=== PATIENT | male | born 1990 | race Two or more races ===

== ENCOUNTER 2024-12-05 08:14 | Inpatient (IN) | payer OTHER ==
[~2024-12-05] VITALS: Ht 167.6 cm; Wt 240.0 kg
[2024-12-05] MEDS ORDERED: ENTYVIO300 MG IV (08:24)
[2024-12-05] MEDS ORDERED: MORPHINE SULFATE 2 MG/ML SYRINGE IV STA (09:06)
[2024-12-05] MEDS ORDERED: FAMOtidine 10 MG/ML (4ML VIAL) IV STA (09:06)
[2024-12-05] MEDS ORDERED: 0.9 % SODIUM CHLORIDE 1,000 ML IV STA (09:07)
[2024-12-05] MEDS ORDERED: FAMOTIDINE/PF 20 MG/2 ML VIAL ONE ×2 (09:13→18:52)
[2024-12-05 10:07] LABS: BASO % 0.5 % (0.1-1.2); EOS # 0.25 (0.04-0.54); EOS % 2.1 % (0.7-7.0); HEMATOCRIT 42.9 % (40.1-51.0); HEMOGLOBIN 14.6 g/dL (13.7-17.5); LYMPH % 14.4 % (19.3-53.1); MEAN CORPUSCULAR HEMOGLOBIN 31.1 pg (25.6-32.2); MONO # 0.76 (0.24-0.82); MONO % 6.5 % (4.7-12.5); NEUT # 8.96 (1.56-6.13); NEUT % 76.2 % (34.0-71.1); PLATELET COUNT 252 K/uL (163-369); RED BLOOD COUNT 4.69 M/uL (4.63-6.08); RED CELL DISTRIBUTION WIDTH 12.2 % (11.6-14.4)
[2024-12-05 10:42] LABS: ALBUMIN 3.9 gm/dL (3.4-5.0); BILIRUBIN TOTAL 0.68 mg/dL (0.3-1.2); CALCIUM 9.5 mg/dL (8.5-10.1); CREATININE SERUM 0.94 mg/dL (0.70-1.30); POTASSIUM 4.27 mEq/L (3.5-5.1); TOTAL PROTEIN 7.9 gm/dL (6.4-8.2)
[2024-12-05] MEDS ORDERED: BARIUM SULFATE 450 ML ORAL.SUSP PO ONE (11:19)
[2024-12-05] MEDS ORDERED: CIPROFLOXACIN IN 5 % DEXTROSE 200 ML IV SCH (15:11)
[2024-12-05] MEDS ORDERED: MORPHINE SULFATE 2 MG/ML SYRINGE IV PRN (15:15)
[2024-12-05] MEDS ORDERED: CIPROFLOXACIN IN 5 % DEXTROSE 400 MG/200 ML PIGGYBAG IV ONE (15:47)
[2024-12-05] MEDS ORDERED: METRONIDAZOLE/SODIUM CHLORIDE 500 MG/100 ML PIGGYBACK IV ONE (15:47)
[2024-12-05] MEDS ORDERED: METRONIDAZOLE/SODIUM CHLORIDE 500 MG/100 ML PIGGYBACK IV SCH (17:00)
[2024-12-05] MEDS ORDERED: FAMOTIDINE/PF 20 MG in 0.9 % SODIUM CHLORIDE 8 ML IV PUSH SCH (18:14)
[2024-12-05] MEDS ORDERED: 0.9 % SODIUM CHLORIDE 1,000 ML IV SCH (18:15)
[2024-12-05] MEDS ORDERED: ACETAMINOPHEN 500 MG GEL..CAP PO PRN (18:15)
[2024-12-05 19:26] VITALS: BP 128/80
[2024-12-05 19:44] LABS: INR 1.03; PARTIAL THROMBOPLASTIN TIME 30.2 SECONDS (22.0-34.0); PROTHROMBIN TIME 11.2 SECONDS (9.0-11.5)
[2024-12-05 19:56] LABS: URINE APPEARANCE Clear; URINE BILIRRUBIN Negative (NEGATIVE); URINE BLOOD Negative; URINE COLOR Yellow; URINE GLUCOSE Negative (NEGATIVE); URINE LEUKOCYTE Negative; URINE NITRATE Negative; URINE PROTEIN Negative (NEGATIVE); URINE UROBILINOGEN 0.2 E.U./dl
[2024-12-05 19:59] LABS: URINE BACTERIA 24.4 uL (0.0-1933); URINE RBC 3.5 uL (0.0-20.8)
[2024-12-05 20:09] LABS: URINE EPITHELIAL CELLS 0.9 uL (0.0-38.8); URINE KETONE 40 (NEGATIVE); URINE WBC 1.3 uL (0.0-23.2)
[2024-12-06 02:00] VITALS: BP 102/53; O2SAT 98
[2024-12-06] MEDS ORDERED: CIPROFLOXACIN IN 5 % DEXTROSE 200 ML IV SCH (05:00)
[2024-12-06 08:00] VITALS: BP 102/61; O2SAT 95
[2024-12-06] MEDS ORDERED: HYDROGEN PEROXIDE 118 ML SOLUTION TOP ONE (15:15)
[2024-12-06] MEDS ORDERED: ISOPROPYL ALCOHOL 30 ML OUNCE TOP ONE (15:30)
[2024-12-06] MEDS ORDERED: POVIDONE-IODINE 0.75 OZ PACKET TOP ONE (15:30)
[2024-12-06] MEDS ORDERED: 0.9 % SODIUM CHLORIDE 1,000 ML IV SCH (17:00)
[2024-12-07 01:06] VITALS: BP 107/66; O2SAT 98
[2024-12-07 07:56] LABS: CALCIUM 8.9 mg/dL (8.5-10.1); CREATININE SERUM 0.76 mg/dL (0.70-1.30); GFR 118.86; POTASSIUM 4.07 mEq/L (3.5-5.1)
[2024-12-07 08:02] LABS: BASO % 0.3 % (0.1-1.2); EOS # 0.08 (0.04-0.54); EOS % 0.6 % (0.7-7.0); HEMATOCRIT 39.6 % (40.1-51.0); HEMOGLOBIN 13.5 g/dL (13.7-17.5); LYMPH # 1.41 (1.18-3.74); MEAN CORPUSCULAR HEMOGLOBIN 31.1 pg (25.6-32.2); MONO # 0.88 (0.24-0.82); MONO % 6.8 % (4.7-12.5); NEUT # 10.37 (1.56-6.13); NEUT % 80.7 % (34.0-71.1); PLATELET COUNT 231 K/uL (163-369); RED BLOOD COUNT 4.34 M/uL (4.63-6.08); RED CELL DISTRIBUTION WIDTH 11.8 % (11.6-14.4)
[2024-12-07 08:31] VITALS: BP 117/65; O2SAT 98
[2024-12-07 16:00] VITALS: BP 120/68; O2SAT 97
[2024-12-08 00:54] VITALS: BP 103/68; O2SAT 98
[2024-12-08 08:19] VITALS: BP 98/68; O2SAT 98
[2024-12-08 16:00] VITALS: BP 100/64; O2SAT 98
[2024-12-09 00:22] VITALS: BP 136/78; O2SAT 98
[2024-12-09 08:48] VITALS: BP 109/72; O2SAT 96
== END 2024-12-09 09:42 | disposition home or self-care (01) | DRG 357 ==
LOC: ER 08:21 → SURH 19:07 → SEC-K 19:07 → SURH 22:50
PROVIDERS: General Practice; Surgery; ADMIT Internal Medicine; ATTEND Internal Medicine
PROC: BW21YZZ Computerized Tomography (CT Scan) of Abdomen and Pelvis using Other Contrast (ICD-10-PCS; 2024-12-05)
PROC: 8E0ZXY6 Isolation (ICD-10-PCS; 2024-12-05)
PROC: 0J9B0ZZ Drainage of Perineum Subcutaneous Tissue and Fascia, Open Approach (ICD-10-PCS; 2024-12-06)
PROC: 0JBB0ZZ Excision of Perineum Subcutaneous Tissue and Fascia, Open Approach (ICD-10-PCS; principal; 2024-12-06 16:45)
DX: K61.39 Other ischiorectal abscess (principal); L03.315 Cellulitis of perineum; B96.20 Unspecified Escherichia coli [E. coli] as the cause of diseases classified elsewhere; B96.6 Bacteroides fragilis [B. fragilis] as the cause of diseases classified elsewhere; B96.7 Clostridium perfringens [C. perfringens] as the cause of diseases classified elsewhere; Z88.6 Allergy status to analgesic agent; Z88.1 Allergy status to other antibiotic agents; Z88.8 Allergy status to other drugs, medicaments and biological substances

== ENCOUNTER 2025-01-23 08:30 | Day surgery (SDC) | payer OTHER ==
[2025-01-16 13:14] VITALS: BP 110/72
[~2025-01-23] VITALS: Ht 167.6 cm; Wt 62.6 kg
[~2025-01-23 08:30] MED LIST: ENTYVIO300 MG IV
[2025-01-23] MEDS ORDERED: METRONIDAZOLE/SODIUM CHLORIDE 500 MG/100 ML PIGGYBACK IV ONE (10:39)
[2025-01-23] MEDS ORDERED: CEFTRIAXONE SODIUM 2,000 MG VIAL ONE (10:39)
[2025-01-23] MEDS ORDERED: DIBUCAINE 30 GM TUBE ONE (11:53)
[2025-01-23] MEDS ORDERED: POVIDONE-IODINE 118 ML BOTT TOP ONE (11:53)
[2025-01-23] MEDS ORDERED: HEMOSTATIC MATRIX 1 KIT KIT TOP ONE (11:54)
[2025-01-23] MEDS ORDERED: HYDROGEN PEROXIDE 473 ML BOTTLE TOP ONE (12:28)
[2025-01-23] MEDS ORDERED: BUPIVACAINE HCL/PF 0.25% 30ML VIAL InF ONE (13:30)
[2025-01-23] MEDS ORDERED: LIDOCAINE HCL 1%/EPINEPHRINE 20ML VIAL IJ ONE (13:30)
[2025-01-23] MEDS ORDERED: OXYCODONE HCL5 MG PO (13:55)
[2025-01-23] MEDS ORDERED: TAMSULOSIN HCL 0.4 MG CAP PO ONE ×2 (14:00→14:52)
[2025-01-23] MEDS ORDERED: MORPHINE SULFATE 4 MG/ML VIAL IV ONE (16:00)
== END 2025-01-23 16:45 | disposition home or self-care (01) ==
LOC: CIR.AMB 08:30
PROVIDERS: ATTEND Surgery
DX: K60.322 Anal fistula, complex, persistent (principal); K60.1 Chronic anal fissure; K51.813 Other ulcerative colitis with fistula; Z88.6 Allergy status to analgesic agent